=== PATIENT | male | born 1970 | race Caucasian/White ===

== ENCOUNTER 2023-11-17 11:36 | Emergency (ER) | payer OTHER, SELFPAY ==
[2023-11-17 11:40] VITALS: BP 160/85
[2023-11-17 12:31] LABS: % Basophils 1.2 % (0-2); % Eosinophils 6.7 % (0-6); % Immature Granulocytes 1.2 % (0-0.5); % Lymphocytes 36.7 % (20.5-51.1); % Monocytes 18.1 % (1.7-9.3); % Neutrophils 36.1 % (42.2-75.2); Absolute Basophils 0.1 10^3/uL (0-0.2); Absolute Eosinophils 0.5 10^3/uL (0-0.7); Absolute Immature Granulocytes 0.1 10^3/uL (0-0.05); Absolute Lymphocytes 2.8 10^3/uL (1.2-3.4); Absolute Monocytes 1.4 10^3/uL (0.1-0.6); Absolute Neutrophils 2.7 10^3/uL (1.4-6.5); Hematocrit 44.2 % (39.0-52.0); Hemoglobin 15.2 g/dL (13.0-18.0); Mean Corp Hgb Conc. 34.4 g/dL (33.0-37.0); Mean Corpuscular Hgb 32.9 pg (27.0-31.0); Mean Corpuscular Volume 95.7 fL (80.0-94.0); Mean Platelet Volume 9.6 fL (7.4-10.4); Nucleated Red Blood Cells % 0 % (-); Platelet Count 118 10^3/uL (130-400); Red Blood Cell Count 4.62 10^6/uL (4.70-6.10); Red Cell Dist. Width 13.9 % (11.5-14.5); White Blood Cell Count 7.5 10^3/uL (4.8-10.8)
[2023-11-17 12:38] LABS: ALT (SGPT) 42 U/L (0-50); AST (SGOT) 56 U/L (17-59); Albumin 4.3 g/dl (3.5-5.0); Alkaline Phosphatase 128 U/L (38-126); Blood Urea Nitrogen 15 mg/dl (9-20); Calcium 9.3 mg/dl (8.4-10.2); Carbon Dioxide 30 mmol/L (22-30); Chloride 102 mmol/L (98-107); Glucose 79 mg/dl (70-99); Potassium 4.1 mmol/L (3.5-5.1); Sodium 139 mmol/L (135-145); Total Bilirubin 0.8 mg/dl (0.2-1.3); Total Protein 7.3 g/dl (6.3-8.2); eGFR > 60.00
[2023-11-17 12:49] LABS: NT-proBNP 54.3 pg/ml; Troponin I < 0.012 ng/ml
--- NOTE | 2023-11-17 13:45 | ED.GENMED ---
History of Present Illness
General
Chief Complaint: Swelling
Source: patient
Time Seen by Provider: 11/17/23 13:03
History of Present Illness
History of Present Illness:
53-year-old male with past medical history of anxiety presenting to the emergency department for evaluation of bilateral lower extremity swelling combined with shortness of breath and dyspnea on exertion for around 3 to 5 days, attempted to
follow-up with his primary care provider but was unable to be seen until November 27 so decided to come to the ER for further evaluation patient notes that he has not been seen by his primary care provider in well over a year. He notes that the only
medication he takes his anxiety medicine and he has never had any of the symptoms before. Patient denies any chest pain, palpitations, fevers or infectious symptoms, pleurisy, hemoptysis, abdominal pain or any other concerns. He does note a very
faint cough intermittently especially when taking a deep breath. He does note also feels as if he has an expiratory wheeze. Social history was noted for smoking 2 cigars/day. Family history was also noted for CHF with patient stating he believes
his grandfather and father having these diagnoses
Past History
Past History
ED Past Medical History: Psychiatric
ED Past Surgical History: Appendectomy
Social History
Tobacco: Smoker (2 cigars daily)
Alcohol: None
Drug: None
Personal: Single
Living: alone
Review of Systems
Review of Systems
All Other Systems: ROS reviewed and negative except as documented in HPI and ROS
Phy Exam
Physical Exam
Physical Exam:
GENERAL: Alert , in no apparent distress
EYE: Clear conjunctiva
NECK: Supple
ENT: o/p clr, mmm.
CARDIAC: Regular rate and rhythm .
LUNGS: Expiratory wheeze noted within the mid to lower right lung, no rales or rhonchi, no accessory muscle use or tachypnea
ABDOMEN: Soft, without focal tenderness, no r/g, no cvat
NEUROLOGICAL: Alert and oriented
SKIN: Warm and dry, skin intact.
MUSCULOSKELETAL: Bilateral 1+ pitting to the knees lower extremity edema, well perfused. Easily palpable pedal and tibial pulse bilateral
PSYCH: Normal and appropriate interaction.
Scores
Heart Failure Risk
Heart Failure Risk Score: Yes
History of Stroke or TIA: No
History of intubation for respiratory distress: No
Heart rate on ED arrival >/= 110: No
SaO2 <90% on arrival on room air: No
HR >/=110 during 3min walk test (or too ill to perform test): No
ECG has acute ischemic changes: No
Urea >/=12mmol/L (BUN 33.6mg/dL): No
Serum CO2>/=35mmol/L: No
Troponin I or T elevated to NC Level (0.4mg/dL): No
NT-proBNP >/=5,000ng/L (5,000pg/ml): No
HF Risk Score: 0
Admission Status: LOW RISK 2.8% Consider discharge to home with f/u visit to PCP/[facility]
Heart Score for Chest Pain Patients
STEMI patient?: Not applicable
Withdrawal Assessment of Alcohol
Withdrawal Assessment Completed?: Not applicable
Course
Orders/Labs/Results
Orders:
Orders
11/17/23 11:43
Electrocardiogram (*1) Urgent
Reason for Study: Shortness of Breath
EKG- Treatment ONCE
11/17/23 11:48
Complete Blood Count/With Diff Urgent
Comprehensive Metabolic Panel Urgent
Pro-BNP [NT-proBNP] Urgent
Troponin I Urgent
11/17/23 12:30
CR Chest - 2 Views Urgent
Comment:
Reason For Exam: sob
11/17/23 13:44
Albuterol Nebs [Ventolin Nebules] 2.5 mg INH R NOW STA
Furosemide [Lasix] 40 mg PO NOW STA
US Legs, Bilateral [US Periph Venous LOWER Ext Yamil] Urgent
Comment:
Reason For Exam: bilateral edema
11/17/23 15:06
Furosemide [Lasix] 20 mg PO NOW STA
Abnormal Lab Results
11/17/23
11:48
RBC 4.62 L 10^6/uL
(4.70-6.10)
MCV 95.7 H fL
(80.0-94.0)
MCH 32.9 H pg
(27.0-31.0)
Plt Count 118 L 10^3/uL
(130-400)
Abs Immat Gran (auto) 0.1 H 10^3/uL
(0-0.05)
Absolute Monos (auto) 1.4 H 10^3/uL
(0.1-0.6)
Immature Gran % 1.2 H %
(0-0.5)
Neutrophils % 36.1 L %
(42.2-75.2)
Monocytes % 18.1 H %
(1.7-9.3)
Eosinophils % 6.7 H %
(0-6)
Alkaline Phosphatase 128 H U/L
(38-126)
11/17/23 11:48
11/17/23 11:48
Vital Signs
Initial and Last Documented VS:
Initial Vital Signs
Temp Pulse Resp BP Pulse Ox
98.6 F 78 18 160/85 98
11/17/23 11:40 11/17/23 11:40 11/17/23 11:40 11/17/23 11:40 11/17/23 11:40
Last Documented Vital Signs
Temp Pulse Resp BP Pulse Ox
98.6 F 73 20 158/73 98
11/17/23 11:40 11/17/23 14:23 11/17/23 14:23 11/17/23 14:23 11/17/23 14:23
MDM/Problems Addressed
Differential Diagnosis Includes:
CHF, COPD, venous insufficiency, DVT and PE considered given smoking history
MDM/Problems Addressed:
53-year-old male presenting emergency department for evaluation of slightly less than a week of bilateral lower extremity edema and shortness of breath, symptoms overall unchanged today but not improving. Attempted to see his primary care provider
however was unable to be seen this week so decided to come to the ER for further evaluation. He does have bilateral lower extremity edema on exam and wheezing. A little less suspicious for DVT/PE although patient does have risk factor with
smoking. Labs have been initiated in triage and are largely unremarkable. BNP is within normal limits. Chest x-ray without any effusions or cardiomegaly. EKG without any signs of ischemia. Will trial a dose of Lasix here, ultrasound ordered to
rule out DVT and a albuterol nebulizer ordered for the wheezing. Will attempt to contact primary care provider to help expedite outpatient visit.
*Radiology
Radiology exam reviewed: preliminary read by ED provider (Normal chest x-ray)
*Pulse Oximetry
Patient hypoxic: no
*EKG
Interpreted by ED Provider?: Yes
Comparison EKG: no comparison EKG present
Heart Rate: 73
Rate: normal
Rhythm: sinus
Ischemia: no ischemia
*Critical Care Note
Total Time (30-74mins, 75-104mins- exclusive of procedures): Not Applicable
Patient Management
Discussion with other providers: PCP
Escalation/DeEscalation of care consider admission/obs:
Patient's ultrasound negative for DVT. Workup is overall unremarkable outside of physical exam findings of noted edema and wheezing. I contacted patient's primary care provider and while he was unable to see his primary care provider in the
practice there were able to get him an appointment with a partner of the practice at 10 AM on November 18. Patient was provided with printouts of his blood work as well as his imaging studies and EKG. He is given a 1 week supply of Lasix 20 mg p.o.
daily. He was also given 10 mill equivalent tablets of potassium to take once daily and a prescription for an inhaler to be used as needed for wheezing/shortness of breath. Patient is aware of return precautions to the ER but is otherwise stable
for discharge home.
ED Attending Note
-
Portions of this chart may have been created with voice recognition software.� Occasional wrong word or��sound alike� substitutions may have occurred due to the inherent limitations of voice recognition software.
Discharge Plan
Departure
Patient Disposition: Home (Routine Discharge)
Date of Disposition: 11/17/23
Time of Disposition: 14:52
Patient with high blood pressure during this ER visit?: Yes
Discharge Problem:
Edema, Shortness of breath
Instructions: Dependent Edema (DC)
Prescriptions:
New
furosemide [Lasix] 20 mg tablet
20 mg PO DAILY 7 Days Qty: 7 0RF
albuterol sulfate 90 mcg/actuation HFA aerosol inhaler
2 puff inhalation Q6H PRN (Reason: shortness of breath or wheezing) Qty: 6.7 0RF
potassium chloride 10 mEq tablet extended release
10 meq PO DAILY 7 Days Qty: 7 0RF
No Action
famotidine [Pepcid] 20 mg Tablet
20 mg PO HS PRN (Reason: heartburn)
trazodone 100 mg tablet
100 mg PO HS
nicotine 21 mg/24 hr patch 24 hour
1 patch transdermal DAILYPRN PRN (Reason: smoking cessation)
Patient Comments:
11/17/2023, pt. currently wearing one patch on their left arm.
mirtazapine 15 mg tablet
15 mg PO HS
hydroxyzine pamoate 25 mg capsule
25 mg PO Q6HPRN PRN (Reason: anxiety/stuffy)
escitalopram oxalate 20 mg tablet
20 mg PO DAILY
aripiprazole 5 mg tablet
5 mg PO DAILY
acamprosate 333 mg tablet,delayed release (DR/EC)
333 mg PO HS
Referrals:
UNKNOWN - PT DOES,NOT KNOW [Family Provider] -
Activity Restrictions/Additional Instructions:
Dr. Centeno at 10am on FridayNovember 18 for follow up
Interventions
Interventions:
*Risk Screen - Suicide Last Done: 11/17/23 11:40
*General Assessment Last Done: 11/17/23 11:40
*Neglect/Abuse Screening Last Done: 11/17/23 11:40
ED- Fall Risk Assessment Last Done: 11/17/23 12:32
*ED COVID-19 Vaccine History Last Done: 11/17/23 15:10
*Nursing Disposition Last Done: 11/17/23 15:10
ED- Cardiac Assessment Last Done: 11/17/23 12:32
ED- Pulmonary Assessment Last Done: 11/17/23 12:32
ED-Skin Assessment Last Done: 11/17/23 12:32
Discharge Date and Time
Discharge Date/Time: 11/17/23 15:11
Print Language: MACEDONIAN
[2023-11-17] MEDS: LASIX 40 MG PO (13:51)
[2023-11-17] MEDS: VENTOLIN NEBULES 2.5 MG INH (13:52)
[2023-11-17 14:23] VITALS: BP 158/73
[2023-11-17] MEDS: LASIX 20 MG PO (15:09)
== END 2023-11-17 15:11 | disposition home or self-care (01) ==
LOC: EMR 11:36
PROVIDERS: Emergency Medicine; EMERGENCY PHYSICIAN Emergency Medicine
DX: R60.0 Localized edema (principal); R06.02 Shortness of breath; R05.9 Cough, unspecified; R06.2 Wheezing; R03.0 Elevated blood-pressure reading, without diagnosis of hypertension; F41.9 Anxiety disorder, unspecified; F17.290 Nicotine dependence, other tobacco product, uncomplicated
CPT/HCPCS: 99285; 94640; 71046; 80053; 83880; 84484; 85025; 93005; 93970